=== PATIENT | male | born 1965 | race Caucasian/White ===

== ENCOUNTER 2019-04-12 07:42 | Day surgery (SDC) | payer OTHER ==
[~2019-04-12] VITALS: Ht 172.7 cm; Wt 111.1 kg
[2019-04-12] MEDS ORDERED: SYNTHROID88 MCG PO (08:30)
[2019-04-12] MEDS ORDERED: FERROUS SULFAT325 MG PO (08:31)
[2019-04-12] MEDS ORDERED: OMEPRAZOLE20 M1 PO (08:31)
[2019-04-12] MEDS ORDERED: HYDROCHLOROTHIA25 MG PO (08:31)
[2019-04-12] MEDS ORDERED: ZOCOR20 MG PO (08:32)
[2019-04-12] MEDS ORDERED: PAXIL30 MG PO (08:32)
[2019-04-12] MEDS ORDERED: ASPIRIN81 MG PO (08:32)
[2019-04-12] MEDS ORDERED: NORTRIPTYLINE H50 MG PO (08:32)
[2019-04-12 08:38] VITALS: BP 138/75; Ht 172.7 cm; Wt 111.1 kg
[2019-04-12 09:32] LABS: HEMATOCRIT 36.9 % (42.0-54.0); HEMOGLOBIN 10.4 g/dL (13.5-17.5); MCHC 28.2 g/dL (31.0-37.0); MCV 71.1 fL (80.0-100.0); MEAN PLATELET VOLUME 9.5 fL (7.4-10.4); RBC 5.19 10x6/uL (4.20-6.10); RDW 17.3 % (11.5-14.5); WBC 7.6 10x3/uL (4.8-10.8)
--- NOTE | 2019-04-14 17:59 | OP ---
PATIENT NAME: VAUGHN BISHOP MEDICAL RECORD: [id number] :69 [facility] DATE: SURGEON: LOIS TALLEY MD DATE OF OPERATION: 04/12/2019 PREOPERATIVE DIAGNOSES: 1. Hematochezia due to bleeding internal hemorrhoids. 2. Third-degree internal hemorrhoidal prolapse of the anus. 3. Intractably symptomatic external hemorrhoids. POSTOPERATIVE DIAGNOSES: 1. Hematochezia due to bleeding internal hemorrhoids. 2. Third-degree internal hemorrhoidal prolapse of the anus. 3. Intractably symptomatic external hemorrhoids. 4. Anterior lying chronic anal fissure. PROCEDURE: Procedure for prolapse and hemorrhoids. SURGEON: Lois Talley MD PROPERTY ADJUSTER: None. BLOOD LOSS: 25 cc. ANESTHESIA: General. COMPLICATIONS: None. The risks, possible complications, and alternatives to the procedure were explained to the patient. He elects to proceed. The discussion specifically included, but was not limited to, bleeding requiring emergency reoperation, infection, anal sphincteric stenosis or postoperative fecal incontinence. This was very unusual in that the anal fissures are almost always in the posterior midline. However, he had a chronic-appearing anterior anal fissure. It was located at 12 o'clock with him in the lithotomy position. OPERATIVE COURSE: The patient was conveyed out into the operating room electively on 04/12/2019. General anesthesia was induced by the anesthesia staff. The patient was placed in the lithotomy position. The buttocks were taped laterally. The anus and perineum were sterilely prepped and draped. U-shaped anal retractors were placed within the anus and I examined the anus. I noted no inflammatory process. No perirectal abscess. No fistula. There was a fissure as described above. I did not believe that the patient needs to have this treated. It is asymptomatic. He does not describe any sharp or knife-like anal pain. A PPH dilator retractor was placed and the retractor was sewn to the surrounding anoderm with 2-0 silks. A mucosal pursestring suture of 2-0 Prolene was applied 1 cm cephalad to the clear retractor. The PPH stapling device was inserted with the anvil cephalad to the pursestring suture, which was then tightened and tied. The device was engaged. It was held in place for 3 minutes. The perianal tissues were infiltrated with a combination of Marcaine and a steroid preparation. I then fired the stapling device. I withdrew it. There was an entire donut of hemorrhoidal tissue within the stapling device. OPERATIVE REPORT [id number] VAUGHN BISHOP Bleeding along the anastomotic staple line was controlled with [id number] 3-0 Vicryls. I noted 3 internal hemorrhoidal bundles that were still enlarged after removing the clear retractor. These were suture ligated with 3-0 Vicryl sutures. Gelfoam was applied within the anus and lower rectum. Americaine was applied to the external hemorrhoids. The patient was then extubated and conveyed to post-anesthesia care unit where he was in stable condition. He will be dismissed back to the [facility] with Colace as well as Valium and Stevinson. I am concerned that he will require some type of analgesia at the [facility]. He is not to do any lifting or straining for 3 weeks, nothing heavier than a gallon of milk. It is going to be normal for him to have some bleeding with every bowel movement for about the first 3 weeks. There is no need for the patient to follow up with me in the office unless he develops a complication related to this operative procedure. Alternatively, I could see him in followup at the [facility] when I have a GI clinic day. TRANSINT:[id number] Voice Confirmation ID: [id number] DOCUMENT ID: [id number] CC: Dr. Hubert TALLEY, LOIS PA at 1759 CC: [id number] DICTATION DATE: 04/12/19 1234 [facility]ER: 04/12/19 1257 [facility] 04/12/19 [facility] [address] [place] [address]
== END 2019-04-12 17:10 | disposition home or self-care (01) ==
LOC: D.OPS 07:42 → EDBD 07:42 → D.OPS 09:30
PROVIDERS: Anesthesiology; ATTEND Surgery
DX: K92.1 Melena (principal); K64.2 Third degree hemorrhoids; K64.4 Residual hemorrhoidal skin tags; K60.1 Chronic anal fissure; I10 Essential (primary) hypertension